=== PATIENT | female | born 1985 | race Caucasian/White ===

== ENCOUNTER 2016-11-13 10:25 | Inpatient (IN) | payer MEDICAID, OTHER ==
[2016-11-13 10:51] VITALS: BMI 25.7
--- NOTE | 2016-11-13 10:59 | OBHP ---
Datetime: 11/13/2016 10:56 Admit Comment, IP Provider: 31 yo edc 4.5 @ 39.2wks w/ c/o ctxs q10min with onset @ 12am and li ght spotting denies srom, decreased fm, coitus for >2mo'sor problems with obhx. doroteo received her prenat care in [place] until @ 28wks and then had care in [facility] in [place] pmhx_ pshx: denies shx: denies etoh, drugs or tobacco medic: pnv nkda i: 39.2wks labor p: admit uncertain if she desires epidural obtain records from ob clinic Datetime: 11/13/2016 10:51 IP Adm Impression: Term, intrauterine IP Admit Plan: Admit to unit; Initiate labor protocol Pelvic Type - PN: Adequate Extremities - PN: Normal Abdomen - PN: Normal Lungs - PN: Normal Heart - PN: Normal Neurologic - PN: Normal HEENT - PN: Normal General - PN: Normal Presentation-Admit: Vertex FHR - Baseline A Provider: 120 Membranes, Provider: Intact Contraction Comments Provider: q3-5 IP Chief Complaint: Uterine contractions NICHD Variability Prov Fetus A: Moderate 6-25bpm NICHD Accel Fetus A IP Provider: 15X15 FHR Category Provider Fetus A: Category I NICHD Decel Fetus A IP Provider: None Dilatation, Provider: 4 Effacement, Provider: 70 Station, Provider: -2 Genitourinary Exam: Normal
[2016-11-13] MEDS ORDERED: Lactated Ringer's 2,000 ML IV ONE (11:04)
--- NOTE | 2016-11-13 11:13 | OBADHP ---
Datetime: 11/13/2016 10:56 Admit Comment, IP Provider: 31 yo edc 4.5 @ 39.2wks w/ c/o ctxs q10min with onset @ 12am and li ght spotting denies srom, decreased fm, coitus for >2mo'sor problems with obhx. doroteo received her prenat care in [place] until @ 28wks and then had care in [facility] in [place] pmhx_ pshx: denies shx: denies etoh, drugs or tobacco medic: pnv nkda i: 39.2wks labor p: admit uncertain if she desires epidural obtain records from ob clinic Datetime: 11/13/2016 10:51 Pelvic Type - PN: Adequate Extremities - PN: Normal Abdomen - PN: Normal Lungs - PN: Normal Heart - PN: Normal Neurologic - PN: Normal HEENT - PN: Normal General - PN: Normal Presentation-Admit: Vertex FHR - Baseline A Provider: 120 Membranes, Provider: Intact Contraction Comments Provider: q3-5 IP Chief Complaint: Uterine contractions NICHD Variability Prov Fetus A: Moderate 6-25bpm NICHD Accel Fetus A IP Provider: [id number] FHR Category Provider Fetus A: Category I NICHD Decel Fetus A IP Provider: None Dilatation, Provider: 4 Effacement, Provider: 70 Station, Provider: -2 Genitourinary Exam: Normal IP Adm Impression: Term, intrauterine IP Admit Plan: Admit to unit; Initiate labor protocol
[2016-11-13 11:44] VITALS: BP 98/63; PULSE 65; RESP 18; TEMP 98.2; O2SAT 100
[2016-11-13] MEDS ORDERED: Lactated Ringer's 1,000 ML IV SCH (13:00)
[2016-11-13] MEDS ORDERED: SODIUM CHLORIDE IVPB ONE (13:30)
[2016-11-13] MEDS ORDERED: [UNRECOGNIZED DRUG - OTHER] IVPB ONE (13:30)
[2016-11-13 13:47] LABS: BASO % 0.3 % (0.0-2.0); EOS % 0.2 % (0.0-4.0); HEMATOCRIT 30.7 % (34.0-47.0); LYMPH # 1.5 K/uL (1.0-4.3); LYMPH % 20.6 % (20.0-40.0); MEAN CELL VOLUME 78.2 fl (81.0-99.0); MEAN CORPUSCULAR HEMOGLOBIN 24.7 pg (27.0-31.0); MEAN CORPUSCULAR HGB CONC 31.6 g/dL (33.0-37.0); MEAN PLATELET VOLUME 10.2 fl (7.2-11.7); MONO # 0.4 K/uL (0.0-0.8); MONO % 5.9 % (0.0-10.0); NEUT # 5.4 K/uL (1.8-7.0); RED CELL DISTRIBUTION WIDTH 16.7 % (11.5-14.5); WHITE BLOOD COUNT 7.5 K/uL (4.8-10.8)
--- NOTE | 2016-11-13 14:14 | OBPN ---
Datetime: 11/13/2016 13:54 Membranes, Provider: Intact FHR - Baseline A Provider: 120 Presentation-Admit: Vertex IP Progress Note Comment: s: c/o pain with ctxs declines pain medic i: 39.2wks latent phase gbs+ p: pcn g expectant vd Vital Signs Provider: Within Normal Limits FHR Category Provider Fetus A: Category I NICHD Variability Prov Fetus A: Moderate 6-25bpm Dilatation, Provider: 5 Effacement, Provider: 70 Station, Provider: -2 Datetime: 11/13/2016 10:51 Contraction Comments Provider: q3-5 NICHD Accel Fetus A IP Provider: [id number] NICHD Decel Fetus A IP Provider: None
[2016-11-13] MEDS ORDERED: Penicillin G 5 Million Unit Vial IVPB ONE (16:42)
[2016-11-13] MEDS ORDERED: Fentanyl/Bupivacaine HCl 250 ML EPI ONE (16:51)
[2016-11-13] MEDS ORDERED: Lidocaine 1% Inj (20ml) ONE (17:24)
[2016-11-13] MEDS ORDERED: Oxytocin 30 units/LR 500ML 500 ML IV ONE (17:26)
[2016-11-13] MEDS ORDERED: Oxycodone/Acetaminophen 5/325 mg Tab PO PRN (18:28)
[2016-11-13] MEDS ORDERED: Oxytocin 30 units/LR 500ML 500 ML IV SCH (18:30)
--- NOTE | 2016-11-13 19:22 | OBDS ---
DELIVERY PERSONNEL Delivery Doctor: Pepe Acosta MD Professor Of Public Administration: elisa rn/ ekaterina hickey Anesthesiologist: Melody aPck MD MATERNAL INFORMATION Delivery Anesthesia: Local; Epidural Medications in Delivery: 30/500 pitocin Estimated Blood Loss (ml): 300 Placenta Cultured: No Maternal Complications: None Provider Comments: Attending: Dr. Luis Manuel Loo Resident: Dr. Ranjana Denny PGY1 live boy,no nuchal cord noted, cord was clamped and cut and 3 vessels noted. wa s placed over maternal chest, bulb suctioned nasopharygeally and crying spontaneously. 9/9, w eight: 3555 g. Cord blood was obtained. 2nd degree perineal and rt lateral sulcus tear noted and re paired by Dr. Loo. Patient tolerated the procedure well. Estimated blood loss was 300 mL. Placen ta was delivered without complication, intact and spontaneous. Mother and Baby remained stable. Ranjana Denny PGY1 LABOR SUMMARY EDC: 11/18/2016 00:00 No. Babies in Womb: 1 Attempted: No Labor Anesthesia: Epidural LABOR INFORMATION Reason for Induction: Not Applicable Onset of Labor: 11/13/2016 00:00 Complete Dilatation: 11/13/2016 17:30 Oxytocin: N/A Group B Beta Strep: Positive Antibiotics # of Doses: 1 dose of PennG 5 Mu Antibiotics Time of Last Dose: 13:30 Steroids Given: None Reason Steroids Not Administered: Not Applicable MEMBRANES Membranes Rupture Method: Spontaneous Rupture of Membranes: 11/13/2016 17:30 Length of Rupture (hrs): 0.23 Amniotic Fluid Color: Clear Amniotic Fluid Amount: Moderate Amniotic Fluid Odor: Normal STAGES OF LABOR Stage 1 hrs: 17 Stage 1 min: 30 Stage 2 hrs: 0 Stage 2 min: 14 Stage 3 hrs: 0 Stage 3 min: 11 Total Time in Labor hrs: 17 Total Time in Labor min: 55 VAGINAL DELIVERY Episiotomy: None Laceration Extension: Second Degree Laceration Type: Perineal; Sulcus Laceration Repair: Yes Laceration Repair Note: Repair of 2nd degree perineal and rt lateral sulcus tear with 3-0 vicryl. Initial Vag Sponge Count: 15 Final Vag Sponge Count: 15 Initial Vag Sharps Count: 2 Final Vag Sharps Count: 2 Sponge Count Correct: Yes CSECTION DELIVERY Primary Indication: N/A Secondary Indication: N/A CSection Urgency: N/A CSection Incidence: N/A Labor: N/A Elective: N/A CSection Incision: N/A BABY A INFORMATION Infant Delivery Date/Time: 11/13/2016 17:44 Method of Delivery: Vaginal Born in Route : No : N/A Forceps: N/A Vacuum Extraction: N/A Shoulder Dystocia : No SHOULDER DYSTOCIA BABY A Delivery Date/Time: 11/13/2016 17:44 PRESENTATION/POSITION BABY A Presentation: Cephalic Cephalic Presentation: Vertex Vertex Position: Left Occipital Anterior Breech Presentation: N/A PLACENTA INFORMATION BABY A Placenta Delivery Time : 11/13/2016 17:55 Placenta Method of Delivery: Spontaneous Placenta Status: Delivered SCORES BABY A Heart Rate 1 min: >100 bpm Resp Effort 1 min: Good Cry Reflex Irritability 1 min: Cough or Sneeze or Pulls Away Muscle Tone 1 min: Active Motion Color 1 min: Body [place], Extremities Blue Resuscitation Effort 1 min: N/A SCORE 1 MIN: 9 Heart Rate 5 min: >100 bpm Resp Effort 5 min: Good Cry Reflex Irritability 5 min: Cough or Sneeze or Pulls Away Muscle Tone 5 min: Active Motion Color 5 min: Body [place], Extremities Blue Resuscitation Effort 5 min: N/A SCORE 5 MIN: 9 INFORMATION BABY A Gestational Age at Delivery: 39.2 Outcome : Liveborn Infant Condition : Stable Sex: Male IDENTIFICATION/MEDS BABY A ID Band Number: [id number] ID Band Location: Left Leg; Left Arm WEIGHT/LENGTH BABY A Birthweight (gms): 3555 Infant Weight (lb): 7 Infant Weight (oz): 13 CORD INFORMATION BABY A No. Cord Vessels: 3 Nuchal Cord : Around Neck x1, Loose Cord Blood Taken: Yes Infant Suction: Mouth; Nose ASSESSMENT BABY A Complications: None Physical Findings at Delivery: Within Normal Limits Infant Respirations: Appears Normal Director Of Market Analysis/ALS Called : No Infant Care By: DR Dykes Transferred To: Remains with Mother
[2016-11-14] MEDS: Benzocaine/Menthol SPRAY TOP PRN ×2 (04:24→21:08)
[2016-11-14 06:50] LABS: BASO % 0.3 % (0.0-2.0); EOS % 0.3 % (0.0-4.0); HEMATOCRIT 27.5 % (34.0-47.0); LYMPH % 21.7 % (20.0-40.0); MEAN CELL VOLUME 77.3 fl (81.0-99.0); MEAN CORPUSCULAR HEMOGLOBIN 25.3 pg (27.0-31.0); MEAN CORPUSCULAR HGB CONC 32.7 g/dL (33.0-37.0); MEAN PLATELET VOLUME 9.8 fl (7.2-11.7); MONO # 0.6 K/uL (0.0-0.8); MONO % 6.1 % (0.0-10.0); NEUT # 6.7 K/uL (1.8-7.0); NEUT % 71.6 % (50.0-75.0); RED CELL DISTRIBUTION WIDTH 16.7 % (11.5-14.5); WHITE BLOOD COUNT 9.3 K/uL (4.8-10.8)
[2016-11-14] MEDS: Multivitamin With Minerals Tab PO SCH (08:49)
--- NOTE | 2016-11-14 09:44 | OBPPN ---
Datetime: 11/14/2016 06:02 PP Pain Prov: Within normal limits PP Nausea Prov: Denies PP Flatus Prov: Yes PP BM Prov: No PP Breasts Prov: Normal PP Heart Prov: Normal PP Lungs Prov: Normal PP Abdomen/Uterus Prov: Normal PP Lochia Prov: Normal PP Vulva/Perineum Prov: Normal PP CVA Tenderness Prov: Normal PP Extremities Prov: Normal PP C/S Incision Prov: Not Applicable PP Progress Prov: Normal PP Comments Phys Exam Prov: No acute distress. Comfortable in bed. Lungs CTA b/l. RRR S1S2. Abd: soft, uterus umb level firm. +BS no calf tenderness Alert, oriented PP Impression Prov: Normal progression PP Plan Prov: Continue present management PP Progress Note Prov: PPD1 Patient seen at bedside on PPD1 s/p NVD. Denies nausea, vomiting or headache. Lochia like menses, pain is controlled with motrin. +Flatus, no BM yet. Voiding with no difficulty. Ambulating with no di fficulty. Tolerating PO. Denies calf pain. O:See above A: 31 y/o S/P NVD on PPD1 normal progression P: Cont Motrin PRN for pain Cont Reg diet Encourage ambulation Encouraged Anticipated DC 11/15/16 Andrew Sanchez PGY1 Addendum by Dr. Raygoza: Patient has been evaluated independently by myself and I agree with the abo ve. Patient is PPD #1, continue reg diet, Percocet/Motrin prn pain, encourage ambulation IP PP Procedures: None Vital Signs Provider PP: Reviewed; Within Normal Limits
[2016-11-14] MEDS ORDERED: Lansinoh for Breast Feeding Mothers TP ONE (21:12)
[2016-11-15] MEDS: Multivitamin With Minerals Tab PO SCH (09:32)
--- NOTE | 2016-11-30 18:06 | OBPPN ---
Datetime: 11/15/2016 07:30 PP Pain Prov: Within normal limits PP Nausea Prov: Denies PP Flatus Prov: Yes PP BM Prov: Yes PP Heart Prov: Normal PP Lungs Prov: Normal PP Abdomen/Uterus Prov: Normal PP Lochia Prov: Normal PP Extremities Prov: Normal PP C/S Incision Prov: Not Applicable PP Progress Prov: Normal PP Comments Phys Exam Prov: Abdomen: Soft, no distended, no tender to palpation. No rigidity or guar ding noted. Uterus firm below umbilicus. BS + Ext: No edema, no calf tenderness, Krystle's sign negative B/L PP Impression Prov: Normal progression PP Plan Prov: Discharge PP Progress Note Prov: PPD2 Patient was seen and examined at bedside. Patient is feeling well. Pain well controlled with Ibupr ofen. Lochia less than menses, and decreasing progressively. Passing gasses and had a normal bowel mo vement yesterday. Voiding with no difficulty. Ambulating on her own. Tolerating reg diet. Denies pain , nausea, vomiting and /or other complains at this evaluation. O:See above A: 31 y/o S/P NVD on PPD2 with normal progression P: -Stable to be discharge home today. -Cont Ibuprofen PRN for pain control at home. -Take Ferrous sulfate 325 mg 1 tab daily by mouth -Cont Reg diet -Continue . -Maintain good hydration and ambulation at home -F/U with OBGYN in 4-6 weeks for evaluation. -F/U in 2-3 days with PMD/[employer] Service [employer]visor -ER precautions provided. Ranjana Denny PGY1 obh addendum pt seen _ examined by me. agree with assessment and plan IP PP Procedures: None Vital Signs Provider PP: Reviewed; Within Normal Limits
--- NOTE | 2016-11-30 18:06 | OBDCSUM ---
Datetime: 11/15/2016 13:30 Discharge Instructions, Provider: Routine instructions given Discharge Diagnosis, Provider: Term Delivered Contraception after Delivery: Undecided
== END 2016-11-15 15:05 | disposition home or self-care (01) | DRG 373 ==
LOC: H.EROB2 10:25 → H.L&D 11:02 → H.OB/GYN 11-14 01:15
PROVIDERS: ADMIT Obstetrics & Gynecology; ATTEND Obstetrics & Gynecology
PROC: 10E0XZZ Delivery of Products of Conception, External Approach (ICD-10-PCS; principal; 2016-11-13)
PROC: 0KQM0ZZ Repair Perineum Muscle, Open Approach (ICD-10-PCS; 2016-11-13)
PROC: 4A1HXCZ Monitoring of Products of Conception, Cardiac Rate, External Approach (ICD-10-PCS; 2016-11-13)
DX: O69.81X0 Labor and delivery complicated by cord around neck, without compression, not applicable or unspecified (principal); O70.1 Second degree perineal laceration during delivery; Z37.0 Single live birth; Z3A.39 39 weeks gestation of pregnancy